=== PATIENT | male | born 1950 | race Caucasian/White ===

== ENCOUNTER 2016-09-20 13:19 | Outpatient (CLI) | payer OTHER | END 2016-09-20 13:20 | disposition home or self-care (01) | LOC: SC 13:19 | PROVIDERS: ATTEND Nurse Practitioner Family | DX: G47.33 Obstructive sleep apnea (adult) (pediatric) (principal) | CPT/HCPCS: 99212; 99214 ==

== ENCOUNTER 2017-09-17 14:43 | Outpatient (CLI) | payer OTHER | END 2017-09-17 14:44 | disposition home or self-care (01) | LOC: SC 14:43 | PROVIDERS: ATTEND Nurse Practitioner Family | DX: G47.33 Obstructive sleep apnea (adult) (pediatric) (principal); R53.83 Other fatigue | CPT/HCPCS: 99212; 99213 ==

== ENCOUNTER 2018-03-25 14:06 | Outpatient (CLI) | payer MEDICARE, OTHER | END 2018-03-25 14:07 | disposition home or self-care (01) | LOC: SC 14:06 | PROVIDERS: ATTEND Internal Medicine Pulmonary Disease | DX: G47.33 Obstructive sleep apnea (adult) (pediatric) (principal) | CPT/HCPCS: 99213; G0463; 99212 ==

== ENCOUNTER 2018-05-13 16:16 | Outpatient (CLI) | payer MEDICARE, OTHER | END 2018-05-13 16:17 | disposition home or self-care (01) | LOC: SC 16:16 | PROVIDERS: ATTEND Nurse Practitioner Family | DX: G47.33 Obstructive sleep apnea (adult) (pediatric) (principal) | CPT/HCPCS: 99213; G0463; 99212 ==

== ENCOUNTER 2022-07-26 08:42 | Outpatient (CLI) | payer MEDICARE, OTHER ==
--- NOTE | 2022-07-26 09:30 | Sleep Patient Instructions ---
Sleep Center Visit Summary - Patient Visit Information Reason for Visit: Initial consult to re-establish care for CPAP therapy - Patient Instructions Additional Instructions: You will continue with CPAP therapy with pressure set at 6-10 cmH2O. A supply prescription will be updated with your DME We encourage you to continue to try to lose weight. Please follow up with the sleep care office in 1 year. - Clinic Information Contact: [facility] [address] [place] [address] [email or web address] T: [phone]
--- NOTE | 2022-07-26 09:36 | SLEEP CARE CONSULTATION ---
Information from patient questionnaire entered by Ross Bautista. I have reviewed and concur with the information entered by Ross Bautista. This document represents the service I personally performed and the decisions made by me, Donna Villarreal ARNP. History of Present Illness Service Date and Time: 07/26/2022 0842 Reason for Visit: New patient, Previously diagnosed sleep apnea, sleep apnea on CPAP therapy, Re-establish care Chief Complaint: reports: Other (Update supplies) Usual bedtime: 11PM Time it takes to fall asleep: 5-10 minutes Snores at night: Yes Observed to quit breathing while asleep: No Sleeps alone due to snoring: Yes Number of times waking at night: 0-1 Reasons for waking at night: reports: Bathroom Toss, Turn, or Twitch while sleeping: No Recalls having dreams: Yes Usually gets out of bed at: 0600 Feels refreshed in the morning: Yes Morning headache: No Sleepy or fatigued during the day: Yes Ever fallen asleep while driving: No Takes day naps: Yes Dreams during day naps: No Prior sleep studies: Yes Year and Where: [facility] 2006 Additional HPI information: BLANCA EVANS was previously diagnosed to have mild, AHI 10.6, obstructive sleep apnea-hypopnea syndrome as document in 2007 and comes in today to re- establish care for CPAP therapy. - Parasomnia Symptoms Ever been unable to move upon waking from sleep: No Walks in sleep: No Talks in sleep: No Ever acted out dreams in sleep: No Ever felt weak in the knees when startled or emotional: No Bothered by creepy, crawly, restless sensations in legs: Yes Problems with memory or concentration: No CPAP Compliance Data - Data Reviewed with Patient Average duration of nightly device use: 6 hours 46 minutes Compliance rate %: 100 (90/90 days used) Current pressure setting (cmH2O): 6-10 Average residual AHI: 0.5 Central apnea: 0.2 Obstructive apnea: 0.3 Compliance data discussion: He gets supplies from [employer]. He has an Airsense 10 that was setup on 03/2018. He is using a nasal cushion, over the nose. Subjective Patient concerns: reports: air blowing in eyes (occasional; just needs adjustment), dry mouth, nose, throat (1-2 times a week). denies: aerophagia, mask discomfort, mask leak noise, condensation in mask/hose, nasal congestion, epistaxis Observed to snore while using device: No Current pressure setting perceived as: comfortable On therapy, patient: reports: sleeping better, awakening more refreshed, being more awake and alert during the day, more rested overall. 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 Patient is and lives in [facility]. Have you smoked in the past 12 months: No Years of smokin Quit date: 1983 Alcohol use: Yes Alcohol amount and frequency: ONCE A YR MAYBE Caffeine use: Yes Caffeine amount and frequency: 3-4 cups coffee daily, sometimes more Family History Family history of sleep disordered breathing: No Allergies and Home Medications Known drug allergies: Yes ([facility]) Drug allergies reviewed: Yes Home medication list reviewed: Yes (see updated list in EMR) Review of Systems Weight loss over past 5 years: 40 Cardiovascular: reports: high blood pressure, leg or foot swelling Gastrointestinal: denies: heartburn Urinary: reports: incontinence Neurological: denies: headaches Psychiatric: denies: anxiety, depression Ear/Nose/Throat: reports: nasal congestion, sinus problems, nose bleeds, dry mouth/throat, injury to nose, tonsillectomy, wisdom teeth removed Musculoskeletal: reports: joint pain, neck pain, back pain, joint swelling, mobility problems Immunologic: reports: allergies to food or environment Physical Exam Vital signs obtained and entered by: ROSS Barragan MA Blood Pressure: 118/78 (LEFT ARM) Cuff size: regular Heart Rate: 65 O2 Saturation: 96 Height: 5 ft 8 in Weight: 222 lb 3.2 oz Body Mass Index: 33.7 BMI Classification: Obese Neck circumference: 16.5 Heart: regular rate and rhythm Lungs: clear bilaterally Impression and Plan 1. Obstructive Sleep Apnea-Hypopnea Syndrome, mild, with good treatment compliance and good apnea control. On CPAP therapy, the patient has better sleep quality and is more rested overall. Patient has significant improvement of their sleep apnea and is satisfied with current CPAP therapy. Patient states he the very dry mouth once or twice a week. He has to get a drink of water because his tongue is sticking to his teeth. He has a new medication for his psoriasis but other than that no other changes. He does not believe his mouth is coming open and it does not happen very often. I encouraged him to try a mouth moisturizer like Biotene as needed and he voiced understanding. Patient's apnea severity and rationale for treatment to reduce apnea, improve sleep quality and reduce cardiovascular and cerebrovascular events was reviewed. I also reviewed the benefit of consistent device use of CPAP for hypertension. 2. Obesity, unspecified. Currently patients BMI is 33.7. Obesity increases the risk of apnea, CPAP pressure requirements and overall health risks especially cardiovascular and diabetes. Thus patient is advised to continue to try to lose weight. * Continue auto CPAP pressure at 6-10 cmH2O * Update supplies * Notify me if snoring with mask or feeling that the pressure is too much or too little * Attempt to lose weight * Call this office if any problems using CPAP * Return for follow up in 1 year, or sooner if concerns arise Counseling Topics: Spare mask, Weight loss health impact Visit Type: In Office Time Spent with Patient (minutes): 30 Provider Statement: I spent 100% of the Face to Face Visit with the patient with greater than 50% spent counseling the patient and coordination of care.
[2022-07-26 09:40] VITALS: BP 118/78
== END 2022-07-26 08:43 | disposition home or self-care (01) ==
LOC: SC 08:42
PROVIDERS: ATTEND Nurse Practitioner Family
DX: G47.33 Obstructive sleep apnea (adult) (pediatric) (principal); E66.9 Obesity, unspecified; Z68.33 Body mass index [BMI] 33.0-33.9, adult
CPT/HCPCS: 99203; G0463; 99212

== ENCOUNTER 2023-08-14 10:30 | Outpatient (CLI) | payer MEDICARE, OTHER ==
--- NOTE | 2023-08-14 11:49 | Sleep Patient Instructions ---
Sleep Center Visit Summary - Patient Visit Information Reason for Visit: Annual follow-up - Patient Instructions Additional Instructions: You will continue with CPAP therapy with pressure set at 6-10 cmH2O. A supply prescription will be updated with your DME. I have ordered a verifying sleep study requested by your insurance. We encourage you to continue to try to lose weight. Please follow up with the sleep care office after sleep study. - Clinic Information Contact: [facility] [address] [place] [address] [email or web address] T: [phone]
--- NOTE | 2023-08-14 11:59 | SLEEP CARE CONSULTATION ---
Information from patient questionnaire entered by Nohemi Bautista. I have reviewed and concur with the information entered by Nohemi Bautista. This document represents the service I personally performed and the decisions made by me, Donna Villarreal ARNP. History of Present Illness Service Date and Time: 08/14/2023 1030 Previous diagnosis: Mild, Obstructive Sleep Apnea-Hypopnea Syndrome AHI: 10.6 (in 2006) Reason for follow up: annual (LAST SEEN 07/2022) Equipment type: CPAP ([employer]med Airsense 10, s/u 03/2018) Equipment obtained from: [employer] (getting supplies) Mask style: Nasal (over the nose) Backup mask available: Yes Last cushion change: less than a month Prior sleep studies: Yes Year and Where: [facility] 2006 [facility] additional information: BLANCA EVANS was diagnosed to have mild, AHI 10.6, obstructive sleep apnea- hypopnea syndrome and returned today for CPAP therapy annual follow-up. Sleep Study - Results Prior sleep studies: Yes Year and Where: [facility] 2006 CPAP Compliance Data - Data Reviewed with Patient Average duration of nightly device use: 6 HRS 54 MINS Compliance rate %: 100 (08/11/2319-08/09/2023; 365/365 days used) Current pressure setting (cmH2O): 6-10 Average residual AHI: 0.5 Central apnea: 0.2 Obstructive apnea: 0.2 Hypopnea: 0.1 Average large leak: 0.3 L/min Subjective Patient concerns: reports: air blowing in eyes (occasional), dry mouth, nose, throat (since prostate surgery). denies: aerophagia, mask discomfort, mask leak noise, condensation in mask/hose, nasal congestion, epistaxis Observed to snore while using device: No Current pressure setting perceived as: comfortable On therapy, patient: reports: sleeping better, awakening more refreshed, being more awake and alert during the day, more rested overall. denies: drowsiness while driving Initial [place] Sleepiness Scale score: 8 (06/12/22) Current [place] Sleepiness Scale score: 10 (08/14/23) Allergies and Home Medications Known drug allergies: Yes (as listed) Drug allergies reviewed: Yes Home medication list reviewed: Yes (no changes) Allergy and home medication list: Allergies Penicillins Allergy (Verified 08/10/23 12:32) shrimp Allergy (Verified 08/10/23 12:32) Ipmpwfq-OIP-BpE Reductase Inhibitor Allergy (Verified 08/10/23 12:32) Review of Systems Review of systems same as previous: No (PROSTATE CANCER, PROSTATE REMOVED) Physical Exam Vital signs obtained and entered by: NOHEMI Barragan MA Blood Pressure: 149/77 (RIGHT ARM) Cuff size: regular Heart Rate: 86 O2 Saturation: 98 Height: 5 ft 8 in Weight: 220 lb Weight change since last visit: 2 lb loss Body Mass Index: 33.4 BMI Classification: Obese Impression and Plan 1. Obstructive Sleep Apnea-Hypopnea Syndrome, mild, with good treatment compliance and good apnea control. On CPAP therapy, the patient has better sleep quality and is more rested overall. He says his DME, [employer], will not give him any supplies because his new insurance, [employer], requires an updated sleep study. His last sleep study was done in 2006 so is over 10 years old. I will order a verifying sleep study and he agreed to complete it. I advised him to not use his CPAP the night before study to assist us in getting an accurate study. He voiced understanding and agreement. We will see him after the sleep study to review results. He is also due for an updated machine which we can take care of after the sleep study. Patient has significant improvement of their sleep apnea and is satisfied with current CPAP therapy. Patient's apnea severity and rationale for treatment to reduce apnea, improve sleep quality and reduce cardiovascular and cerebrovascular events was reviewed. I also reviewed the benefit of consistent device use of CPAP for hypertension. 2. Obesity, unspecified. Currently patients BMI is 33.4. He is currently trying to lose weight. Obesity increases the risk of apnea, CPAP pressure requirements and overall health risks especially cardiovascular and diabetes. Thus patient is advised to continue to try to lose weight. * Continue auto CPAP pressure at 6-10 cmH2O * PSG to verify diagnosis and severity * Update supply prescription * Notify me if snoring with mask or feeling that the pressure is too much or too little * Attempt to lose weight * Call this office if any problems using CPAP * Return for follow up in 12 months, or sooner if concerns arise Counseling Topics: Spare mask, Weight loss health impact Prescriptions: Device supplies Plan: PSG and follow up Visit Type: In Office Time Spent with Patient (minutes): 28 Provider Statement: I spent 100% of the Face to Face Visit with the patient with greater than 50% spent counseling the patient and coordination of care.
[2023-08-14 12:08] VITALS: BP 149/77; O2SAT 98
== END 2023-08-14 10:31 | disposition home or self-care (01) ==
LOC: SC 10:30
PROVIDERS: ATTEND Nurse Practitioner Family
DX: G47.33 Obstructive sleep apnea (adult) (pediatric) (principal); E66.9 Obesity, unspecified; Z68.33 Body mass index [BMI] 33.0-33.9, adult
CPT/HCPCS: 99213; G0463; 99212

== ENCOUNTER 2023-09-20 13:28 | Outpatient (CLI) | payer MEDICARE, OTHER | END 2023-09-20 13:29 | disposition home or self-care (01) | LOC: SC 13:28 | PROVIDERS: ATTEND Nurse Practitioner Family | DX: G47.33 Obstructive sleep apnea (adult) (pediatric) (principal); I10 Essential (primary) hypertension; R09.02 Hypoxemia | CPT/HCPCS: 95806; G0399 ==

== ENCOUNTER 2023-10-25 14:12 | Outpatient (CLI) | payer MEDICARE, OTHER ==
--- NOTE | 2023-10-25 14:56 | Sleep Patient Instructions ---
Sleep Center Visit Summary - Patient Visit Information Reason for Visit: Sleep study follow-up - Patient Instructions Additional Instructions: You will continue with CPAP therapy with pressure set at 6-10 cmH2O. A supply prescription will be updated with your DME supplier. I have added an order to update your PAP machine. Please call the office to schedule a compliance follow up once you get your new device. Please follow up with the sleep care office one month after obtaining new device. - Clinic Information Contact: [facility] [address] [place] [address] [email or web address] T: [phone]
--- NOTE | 2023-10-25 15:00 | SLEEP CARE CONSULTATION ---
Information from patient questionnaire entered by Nohemi Bautista. I have reviewed and concur with the information entered by Nohemi Bautista. This document represents the service I personally performed and the decisions made by , Donna Villarreal ARNP. History of Present Illness Service Date and Time: 10/25/2023 141 Initial [place] Sleepiness Scale score: 8 (06/12/22) Current [place] Sleepiness Scale score: 7 (10/25/23) Additional HPI information: BLANCA EVANS returns for follow up and results of the recently performed home sleep study. The sleep study done on 09/20/23 showed mild obstructive sleep apnea with an average AHI of 8.5 and jennifer oxygen saturation of 81%. I explained the pathophysiology behind obstructive sleep apnea. We then spent quite a bit of time discussing different treatment options. For mild obstructive sleep apnea, surgery and oral appliance are alternatives to nasal CPAP therapy but in moderate or severe cases, nasal CPAP is the most effective and reliable treatment. Patient is a current CPAP user with pressure set at 6-10 cm H2O. He is to continue using his CPAP. He states he is eligible for a new machine. Sleep Study - Results Type of Sleep Study: Home sleep study (COMPLETED 09/20/23) Prior sleep studies: Yes Year and Where: [facility] 2006 Polysomnography/Home Sleep Study results: Physician Impression: The quality of the study is good. The length of the study is adequate (> 240 minutes). Please also see the tabulated and graphic data. 1. Obstructive Sleep Apnea-Hypopnea (ICD-10 G47.33), mild, with an AHI of 8.5/hr and jennifer SaO2 of 81%. During the study, the patient had 12 apneas (12 obstructive, 0 central, 0 mixed) and 39 hypopneas. The longest episode lasted 86.0 seconds. The respiratory events occurred independently of body position (supine AHI was 8.4 and non-supine, 8.63). 2. Hypoxemia (ICD-10 R09.02), mild, with the lowest oxygen saturation of 81 % and 7.9 minutes with SaO2 under 90%. Baseline oxygen saturation was normal (Average oxygen saturation was 92%). Allergies and Home Medications Known drug allergies: Yes (as listed) Drug allergies reviewed: Yes Home medication list reviewed: Yes (no changes) Allergy and home medication list: Allergies Penicillins Allergy (Verified 10/25/23 14:21) shrimp Allergy (Verified 10/25/23 14:21) Oelrcsf-MMS-GkL Reductase Inhibitor Allergy (Verified 10/25/23 14:21) Review of Systems Review of systems same as previous: Yes (no changes) Physical Exam Vital signs obtained and entered by: NOHEMI Barragan MA Blood Pressure: 151/84 (LEFT ARM) Cuff size: regular Heart Rate: 70 O2 Saturation: 95 Height: 5 ft 8 in Weight: 225 lb 9.6 oz Body Mass Index: 34.2 BMI Classification: Obese Impression and Plan 1. Obstructive Sleep Apnea-Hypopnea Syndrome, mild, with lowest oxygen saturation of 81%. He is here for follow-up of sleep study to verify diagnosis and severity for his insurance. He will be continued on nasal autoCPAP therapy with pressure set at 6-10 cmH2O. Patient's apnea severity and rationale for treatment to reduce apnea, improve sleep quality and reduce cardiovascular and cerebrovascular events was reviewed. I also reviewed the benefit of consistent device use of CPAP for hypertension. 2. Hypoxemia, mild, with a jennifer oxygen saturation of 81% and 7.9 minutes spent under 90%. The baseline oxygen saturation was normal with an average oxygen saturation of 92%. 3. Obesity, unspecified. Currently patients BMI is 34.2. Obesity increases the risk of apnea, CPAP pressure requirements and overall health risks especially cardiovascular and diabetes. Thus patient is advised to lose weight. * Continue auto CPAP pressure at 6-10 cmH2O * Notify me if snoring with mask or feeling that the pressure is too much or too little * Attempt to lose weight * Call this office if any problems using CPAP * Return for follow up in 12 months, or sooner if concerns arise Counseling Topics: Weight loss health impact Prescriptions: Auto CPAP (update machine), Device supplies Plan: compliance followup with new device Visit Type: In Office Time Spent with Patient (minutes): 20 Provider Statement: I spent 100% of the Face to Face Visit with the patient with greater than 50% spent counseling the patient and coordination of care.
[2023-10-25 15:17] VITALS: BP 151/84; O2SAT 95
== END 2023-10-25 14:13 | disposition home or self-care (01) ==
LOC: SC 14:12
PROVIDERS: ATTEND Nurse Practitioner Family
DX: G47.33 Obstructive sleep apnea (adult) (pediatric) (principal); R09.02 Hypoxemia; E66.9 Obesity, unspecified; Z68.34 Body mass index [BMI] 34.0-34.9, adult
CPT/HCPCS: 99213; G0463; 99212